=== PATIENT | male | born 1950 | race Two or more races ===

== ENCOUNTER 2017-12-06 14:00 | Outpatient (CLI) | payer MEDICARE, BC ==
[~2017-12-06] VITALS: Ht 152.4 cm; Wt 60.8 kg
[2017-12-06 14:00] VITALS: BP 134/68
--- NOTE | 2017-12-06 15:09 | GI Initial Consult Note ---
Stauffer,Linn Amoroi N.PSilvano 12/06/17 1509: History of Present Illness General Date patient seen: Dec 06, 2017 Time patient seen: 15:00 Referring physician: None Reason for Consultation: colonoscopy Present Illness HPI 67 year old male presents today for routine colonoscopy. States he has been having epigastric pain with a history of GERD. Denies any unintentional weight loss or changes in dietary habits. No signs of abuse or neglect. Patient is not fall risk. Home Meds Reported Medications [no medicaion] No Conflict Check 12/07/17 Med list reviewed/reconciled: No Allergies: Coded Allergies: No Known Allergies (Unverified , 12/06/17) Patient History PMH Narrative Denies any past medical history. Past Surgical History: Rozina Fundoplication Thyroidectomy Family History Narrative Father has liver cancer. Mother had breast cancer. Social History: Reports: other - coffee occasionally, Denies: smoking, alcohol use, drug use Review of Systems All Other Systems: negative except mentioned in HPI Physical Exam T 98.2 Bp 134/68 P 67 95 RA HT 5'0 WT 134 lbs Sp02 EP Interpretation: reviewed, normal General Appearance: well appearing, no apparent distress, alert Head: normocephalic EENT: PERRL/EOMI, normal ENT inspection Neck: supple Respiratory: normal breath sounds, no respiratory distress Cardiovascular: normal rate Gastrointestinal: normal inspection, non tender, soft, normal bowel sounds, non -distended Rectal: deferred Genitourinary: deferred Musculoskeletal: normal inspection, back normal Neurologic: normal inspection, alert, oriented x3, responsive Psychiatric: normal inspection, judgement/insight normal, memory normal Skin: normal inspection, normal color, no rash, warm/dry, palpation normal, well hydrated Lymphatic: normal inspection, no adenopathy GI: Plan Problems: (1) GERD (gastroesophageal reflux disease) (2) History of Rozina fundoplication (3) Colonoscopy planned (4) History of thyroidectomy Plan EGD/colonoscopy scheduled 12/13/17. - CLD & (Nulytely/Suprep/Movi-Prep) prep instructions given and acknowledged by patient. - NPO @ [place] day prior procedure explained. Seen with Dr. Yee. Thank you for this patient referral. ALIZE YEE 12/07/17 1150: History of Present Illness Present Illness Home Meds Reported Medications [no medicaion] No Conflict Check 12/07/17 Allergies: Coded Allergies: No Known Allergies (Unverified , 12/06/17) GI: Plan Plan The patient was seen and examined at bedside and all new and available data was reviewed in the patients chart. I agree with the above findings, impression and plan. (Patient seen earlier today. Signature stamp does not reflect patient encounter time.). - MD [facility] N.PS[facility] Dec 06, 2017 15:09 ALIZE YEE Dec 07, 2017 11:50
[2017-12-06 15:32] VITALS: BP 134/68
[2017-12-07] MEDS ORDERED: [UNRECOGNIZED DRUG - REMARK] (10:57)
== END 2017-12-06 14:32 | disposition home or self-care (01) ==
LOC: PAN 14:00
DX: K21.9 Gastro-esophageal reflux disease without esophagitis (principal); E89.0 Postprocedural hypothyroidism; Z80.8 Family history of malignant neoplasm of other organs or systems
CPT/HCPCS: 99201

== ENCOUNTER 2017-12-15 06:12 | Day surgery (SDC) | payer MEDICARE, BC ==
[2017-12-15] VITALS (8 sets, daily range): BP systolic 132–146; BP diastolic 60–68
[~2017-12-15] VITALS: Ht 167.6 cm; Wt 62.6 kg
[~2017-12-15 06:12] MED LIST: [UNRECOGNIZED DRUG - REMARK]
[2017-12-15] MEDS ORDERED: Propofol 200mg/20ml IV ONE (06:13)
[2017-12-15] MEDS ORDERED: Midazolam 2mg/2ml Inj ONE (06:13)
[2017-12-15] MEDS ORDERED: SYNTHROID75 MCG ORAL (06:49)
--- NOTE | 2017-12-15 07:01 | Anethesia Preoperative Eval ---
Anesthesia Pre-op PMH/ROS General Date of Evaluation: Dec 15, 2017 Time of Evaluation: 08:00 Anesthesiologist: Alejo ASA Score: ASA 2 Mallampati Score Class I : Soft palate, uvula, fauces, pillars visible Class II: Soft palate, uvula, fauces visible Class III: Soft palate, base of uvula visible Class IV: Only hard plate visible Mallampati Classification: Class I Surgeon: Vandana Diagnosis: colon screening, GERD Surgical Procedure: EGD, Colonoscopy Anesthesia History: none Family History: no anesthesia problems Allergies: Coded Allergies: No Known Allergies (Unverified , 12/06/17) Medications: see eMAR Past Medical History Cardiovascular: Denies: HTN, CAD, [place], valve dz, arrhythmia, other Pulmonary: Denies: asthma, COPD, AGATHA, other Gastrointestinal/Genitourinary: Reports: GERD, other - Rozina Fundoplication Neurologic/Psychiatric: Reports: depression/anxiety Endocrine: Reports: other - thyroidectomy HEENT: Denies: cataract (L), cataract (R), glaucoma, [place] (L), [place] (R), other Hematology/Immune: Denies: anemia, DVT, bleeding disorder, other Musculoskeletal/Integumentary: Denies: OA, RA, DJD, DDD, edema, other Anesthesia Pre-op Phys. Exam Physician Exam Constitutional: NAD Neurologic: CN 2-12 intact Cardiovascular: RRR Respiratory: CTA Gastrointestinal: S/NT/ND Airway Exam Mallampati Score: Class I MO: full ROM: full Teeth: intact - left top tooth implant Dentures: no upper, no lower Anesthesia Pre-op A/P Labs chart reviewed Studies Pre-op Studies: EKG - NSB 57 bpm Risk Assessment & Plan Assessment: A&Ox4 Plan: MAC Status Change Before Surgery: No Pre-Antibiotics Given Within 1 Hr of Incision: No Seda Dhillon CRNA Dec 15, 2017 07:01
--- NOTE | 2017-12-15 08:00 | Short Stay Surgery H&P ---
History of Present Illness History of Present Illness Chief Complaint see recent consult note HPI Rachel Corona is a 67 year old male who was admitted on for Colon Screening Patient History Allergies: Coded Allergies: No Known Allergies (Unverified , 12/06/17) PAST MEDICAL HISTORY: Past Surgeries: Social History: Medication History Scheduled Levothyroxine Sodium* (Synthroid*), 75 MCG ORAL DAILY, (Reported) Physical Exam Vital Signs Last Vital Signs Date Time Temp Pulse Resp B/P (MAP) Pulse Ox O2 Delivery O2 Flow Rate FiO2 12/15/17 07:07 96.9 56 18 138/62 99 Room Air Plan Attestation Are the patient's medical conditions optimized for surgery? ALIZE YEE Dec 15, 2017 08:00
--- NOTE | 2017-12-15 08:00 | Pre-Procedure Note/Attestation ---
Pre-Procedure Note/Attestation Complete Prior to Procedure Planned Procedure: not applicable Procedure Narrative: esophagogastroduodenoscopy and colonoscopy Indications for Procedure Pre-Operative Diagnosis: screening colon,GERD Attestation I attest that I discussed the nature of the procedure; its benefits; risks and complications; and alternatives (and the risks and benefits of such alternatives ), prior to the procedure, with the patient (or the patient's legal signs sales representative). I attest that, if there was a reasonable possibility of needing a blood transfusion, the patient (or the patient's legal signs sales representative) was given the [facility] standardized written summary, pursuant to the [place] Blood Safety Act ([place] Health and Safety Code # 1645, as amended). I attest that I re-evaluated the patient just prior to the surgery and that there has been no change in the patient's H&P, except as documented below: ALIZE YEE Dec 15, 2017 08:00
--- NOTE | 2017-12-15 08:24 | Immediate Post-Op Evaluation ---
Immediate Post-Op Evalulation Immediate Post-Op Evalulation Procedure: EGD with biopsy, colonoscopy Date of Evaluation: Dec 15, 2017 Time of Evaluation: 08:43 IV Fluids: NSS 600 ml Blood Products: 0 Estimated Blood Loss: 0 Urinary Output: 0 Blood Pressure Systolic: 145 Blood Pressure Diastolic: 65 Pulse Rate: 58 Respiratory Rate: 20 O2 Sat by Pulse Oximetry: 99 Temperature (Fahrenheit): 98.5 Pain Score (1-10): 0 Nausea: No Vomiting: No Complications none Patient Status: awake, reacts Hydration Status: adequate Given Within 1 Hr of Incision: Seda Castillo CRNA Dec 15, 2017 08:24
--- NOTE | 2017-12-15 08:25 | 48 Hour Post Anesthesia Eval ---
Post Anesthesia Evaluation Procedure: EGD with biopsy, colonoscopy Date of Evaluation: Dec 15, 2017 Time of Evaluation: 08:52 Blood Pressure Systolic: 140 0: 62 Pulse Rate: 59 Respiratory Rate: 20 Temperature (Fahrenheit): 98.5 O2 Sat by Pulse Oximetry: 100 Airway: patent Nausea: No Vomiting: No Pain Intensity: 0 - pt feels gasy Hydration Status: adequate Cardiopulmonary Status: WNL Mental Status/LOC: patient returned to baseline Post-Anesthesia Complications: none Follow-up care needed: patient intructions given Seda Dhillon CRNA Dec 15, 2017 08:25
--- NOTE | 2017-12-15 08:35 | Endoscopy Procedure Note ---
Endoscopy Procedure Note Indication for Procedure: gerd, screening colon Procedures Performed: EGD, colonoscopy Operative Findings/Diagnosis: HH, esophagitis, diverticulosis Specimen: yes Pt Tolerated Procedure Well: Yes Estimated Blood Loss: none Anesthesiologist: vinicius Anesthesia: MAC Implant(s) used?: No 50 yrs or older w/o bx or poly: Yes 10yrs. F/U not recommended: Yes If not recommended, why?: Above average risk 10 yrs. F/U needed: Yes 18 years or older w/prev. colo: No ALIZE YEE Dec 15, 2017 08:35
--- NOTE | 2017-12-15 15:00 | Procedure Note ---
DATE OF PROCEDURE: 12/15/2017 SURGEON: Vasquez Ross M.D. PROCEDURE: Upper endoscopy with biopsy and colonoscopy. ANESTHESIA: Per Alejo MUNIZ. INSTRUMENT: Olympus adult flexible upper endoscope and colonoscope. INDICATION: Screening colonoscopy and chronic GERD. The procedure, risks, benefits, and possible consequences, including hemorrhage, aspiration, perforation and infection, and alternative treatments, were explained to the patient/legal guardian by Dr. Vasquez Ross and the patient/legal guardian understood and accepted these risks. DESCRIPTION OF PROCEDURE: After informed consent was obtained and the patient was adequately sedated, Olympus upper endoscope was advanced from mouth into the second portion of the duodenum and retroflexion was performed in the stomach. The patient has evidence of large hiatal hernia. Also evidence of gastric fold at about 26 cm from the incisors and diaphragm was at about 33. 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 The patient also had evidence of mild atrophic gastritis. Random biopsy from antrum and body was obtained to rule out H. pylori infection. Biopsy from the suspicious Agudelo area was also obtained. At this time, the upper endoscope was retrieved and the patient was turned over for colonoscopy. First, a rectal exam was performed, which was normal. Then, the scope was advanced from rectum into the cecum and then subsequently to terminal ileum. Quality of prep was excellent. The patient had evidence of diverticulosis both in the left and right, but more prominent in the left colon. No obvious polyp was seen. Retroflexion of the rectum showed evidence of small internal hemorrhoid. SUMMARY FINDINGS: 1. Distal esophagitis LA criteria grade 2. 2. 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 3. Hiatal hernia. 4. Atrophic gastritis, status post biopsy. 5. Diverticulosis. 6. Internal hemorrhoids. RECOMMENDATIONS: Follow up biopsy results and treat accordingly. The patient to be started on PPI daily. If the biopsies were consistent with Agudelo's, most probably will benefit from ablation. Vasquez Ross M.D. DR: KIMBERLI/XIOMY JOB#: [id number] CC:
--- NOTE | 2017-12-16 12:40 | Cardiology Report ---
APPROVED REPORT EKG Measurement Heart [id number] [place] 166P53 [id number] Sinus bradycardia Otherwise normal ECG
== END 2017-12-15 09:55 | disposition home or self-care (01) ==
LOC: GAS 06:12
DX: Z12.11 Encounter for screening for malignant neoplasm of colon (principal); K21.9 Gastro-esophageal reflux disease without esophagitis; K44.9 Diaphragmatic hernia without obstruction or gangrene; K29.40 Chronic atrophic gastritis without bleeding; K20.9 Esophagitis, unspecified; K57.90 Diverticulosis of intestine, part unspecified, without perforation or abscess without bleeding; K64.8 Other hemorrhoids; F32.9 Major depressive disorder, single episode, unspecified; F41.9 Anxiety disorder, unspecified
CPT/HCPCS: 43239; 45378; 93005; J2250; J2704; 94003; 94150

== ENCOUNTER 2017-12-23 13:15 | Outpatient (CLI) | payer MEDICARE, BC ==
[~2017-12-23 13:15] MED LIST changes: +SYNTHROID75 MCG ORAL
[2017-12-23 13:59] VITALS: BP 131/61
--- NOTE | 2017-12-23 16:00 | GI Progress Note ---
Assessment/Plan Problems: (1) Barretts esophagus ICD Codes: K22.70 - Agudelo's esophagus without dysplasia SNOMED: 784896881 (2) Colonic polyp ICD Codes: K63.5 - Polyp of colon SNOMED: 93355287 Status: stable Status Narrative Seen with Dr. Ross. Assessment/Plan SUMMARY FINDINGS: 1. Distal esophagitis LA criteria grade 2. 2. 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 3. Hiatal hernia. 4. Atrophic gastritis, status post biopsy. 5. Diverticulosis. 6. Internal hemorrhoids. RECOMMENDATIONS: PPI daily RTC prn repeat EGD x 1 year patient to consider ablation Subjective Gastrointestinal/Abdominal: Reports: no symptoms Objective Last 24 Hour Vital Signs Date Time Temp Pulse Resp B/P (MAP) Pulse Ox O2 Delivery O2 Flow Rate FiO2 12/23/17 13:59 97.5 52 16 131/61 96 General Appearance: WD/WN, no apparent distress, alert Cardiovascular: normal rate Respiratory/Chest: normal breath sounds, no respiratory distress Abdominal Exam: normal bowel sounds, non tender, soft Extremities: normal range of motion, non-tender Linn Stauffer N.PSilvano Dec 23, 2017 16:00
[2017-12-23] MEDS ORDERED: DEXILANT60 MG ORAL (16:48)
== END 2017-12-23 13:47 | disposition home or self-care (01) ==
LOC: PAN 13:15
DX: K22.70 Barrett's esophagus without dysplasia (principal); K63.5 Polyp of colon; K44.9 Diaphragmatic hernia without obstruction or gangrene; K57.90 Diverticulosis of intestine, part unspecified, without perforation or abscess without bleeding; K64.8 Other hemorrhoids; K29.40 Chronic atrophic gastritis without bleeding
CPT/HCPCS: 99212

== ENCOUNTER 2018-03-01 09:27 | Outpatient (CLI) | payer MEDICARE, BC ==
[~2018-03-01 09:27] MED LIST changes: +DEXILANT60 MG ORAL
[2018-03-01 09:47] VITALS: BP 125/60
--- NOTE | 2018-03-01 12:45 | General Progress Note ---
Assessment/Plan Problem List: (1) Back pain ICD Codes: M54.9 - Dorsalgia, unspecified SNOMED: 043834801 (2) Irregular heart beat ICD Codes: I49.9 - Cardiac arrhythmia, unspecified SNOMED: 643973106, 879900932, 607793151 (3) GERD (gastroesophageal reflux disease) ICD Codes: K21.9 - Gastro-esophageal reflux disease without esophagitis SNOMED: 340002813 (4) Barretts esophagus ICD Codes: K22.70 - Agudelo's esophagus without dysplasia SNOMED: 197398662 (5) Colonic polyp ICD Codes: K63.5 - Polyp of colon SNOMED: 88642410 (6) History of thyroidectomy ICD Codes: E89.0 - Postprocedural hypothyroidism SNOMED: 22110895, 202695860 (7) History of Rozina fundoplication ICD Codes: Z98.890 - Other specified postprocedural states SNOMED: 246579360 Assessment/Plan cont dexilant repeat EGD a year from the last one consider ablation treatment trial of flexoril for back pain refered to cardiology for irregular heart beat Subjective ROS Limited/Unobtainable: Yes Allergies: Coded Allergies: No Known Allergies (Unverified , 12/06/17) Subjective c/o back pain Objective Last 24 Hour Vital Signs Date Time Temp Pulse Resp B/P (MAP) Pulse Ox O2 Delivery O2 Flow Rate FiO2 03/01/18 09:47 98.0 67 16 125/60 98 98.0 General Appearance: alert EENT: normal ENT inspection Neck: supple Cardiovascular: normal rate Respiratory/Chest: lungs clear Abdomen: normal bowel sounds, non tender, soft Extremities: non-tender ALIZE YEE Mar 01, 2018 12:45
== END 2018-03-01 10:12 | disposition home or self-care (01) ==
LOC: PAN 09:27
DX: M54.9 Dorsalgia, unspecified (principal); I49.9 Cardiac arrhythmia, unspecified; K21.9 Gastro-esophageal reflux disease without esophagitis; K22.70 Barrett's esophagus without dysplasia; K63.5 Polyp of colon; E89.0 Postprocedural hypothyroidism; Z98.890 Other specified postprocedural states
CPT/HCPCS: 99213

== ENCOUNTER 2018-09-20 09:38 | Outpatient (CLI) | payer MEDICARE, BC ==
[2018-09-20 10:09] VITALS: BP 141/77
--- NOTE | 2018-09-20 15:37 | GI Progress Note ---
Assessment/Plan Problems: (1) Barretts esophagus ICD Codes: K22.70 - Agudelo's esophagus without dysplasia SNOMED: 264840041 (2) GERD (gastroesophageal reflux disease) ICD Codes: K21.9 - Gastro-esophageal reflux disease without esophagitis SNOMED: 917996958 Status: stable Status Narrative Seen with Dr. Ross. Assessment/Plan GERD Esophagitis HH Diverticula EGD scheduled 10/03/18. - NPO @ [place] day prior procedure. ppi will follow with additional recs post procedure The patient was seen and examined at bedside and all new and available data was reviewed in the patients chart. I agree with the above findings, impression and plan. (Patient seen earlier today. Signature stamp does not reflect patient encounter time.). - Vasquez Ross MD Subjective Subjective GERD History of Agudelo Objective Last 24 Hour Vital Signs Date Time Temp Pulse Resp B/P (MAP) Pulse Ox O2 Delivery O2 Flow Rate FiO2 09/20/18 10:09 98.1 65 16 141/77 99 98.1 General Appearance: WD/WN, no apparent distress, alert Cardiovascular: normal rate Respiratory/Chest: normal breath sounds, no respiratory distress Abdominal Exam: normal bowel sounds, non tender, soft Extremities: normal range of motion, non-tender Anel Stauffer [employer] Sep 20, 2018 15:37
== END 2018-09-20 10:08 | disposition home or self-care (01) ==
LOC: PAN 09:38
DX: K22.70 Barrett's esophagus without dysplasia (principal); K21.0 Gastro-esophageal reflux disease with esophagitis; K57.90 Diverticulosis of intestine, part unspecified, without perforation or abscess without bleeding
CPT/HCPCS: 99213

== ENCOUNTER 2018-10-03 06:29 | Day surgery (SDC) | payer MEDICARE, BC ==
[~2018-10-03] VITALS: Ht 160 cm; Wt 60.3 kg
[2018-10-03] VITALS (7 sets, daily range): BP systolic 120–136; BP diastolic 58–77
[2018-10-03] MEDS ORDERED: LR 1000ml ONE (06:30)
[2018-10-03] MEDS ORDERED: Midazolam 2mg/2ml Inj ONE (06:30)
[2018-10-03] MEDS ORDERED: Propofol 200mg/20ml IV ONE (06:30)
[2018-10-03] MEDS ORDERED: fentaNYL 100 mcg/2 mL IV ONE (06:30)
--- NOTE | 2018-10-03 09:33 | Pre-Procedure Note/Attestation ---
Pre-Procedure Note/Attestation Complete Prior to Procedure Planned Procedure: not applicable Procedure Narrative: EGD Indications for Procedure Pre-Operative Diagnosis: GERD, esophagitis Attestation I attest that I discussed the nature of the procedure; its benefits; risks and complications; and alternatives (and the risks and benefits of such alternatives ), prior to the procedure, with the patient (or the patient's legal construction sales representative). I attest that, if there was a reasonable possibility of needing a blood transfusion, the patient (or the patient's legal construction sales representative) was given the [facility] standardized written summary, pursuant to the [place] Blood Safety Act ([place] Health and Safety Code # 1645, as amended). I attest that I re-evaluated the patient just prior to the surgery and that there has been no change in the patient's H&P, except as documented below: Vasquez Ross MD Oct 03, 2018 09:33
--- NOTE | 2018-10-03 09:33 | Short Stay Surgery H&P ---
History of Present Illness History of Present Illness Chief Complaint see recent office note HPI Rachel Hawkins is a 68 year old male who was admitted on for GERD Patient History Allergies: Coded Allergies: No Known Allergies (Unverified , 10/03/18) Medication History Scheduled Dexlansoprazole (Dexilant), 60 MG ORAL DAILY, (Reported) Levothyroxine Sodium* (Synthroid*), 75 MCG ORAL DAILY, (Reported) Physical Exam Vital Signs Last Vital Signs Date Time Temp Pulse Resp B/P (MAP) Pulse Ox O2 Delivery O2 Flow Rate FiO2 10/03/18 07:00 Room Air 10/03/18 06:52 97.3 64 18 129/77 98 Plan Attestation Are the patient's medical conditions optimized for surgery? Vasquez Ross MD Oct 03, 2018 09:33
--- NOTE | 2018-10-03 09:47 | Anethesia Preoperative Eval ---
Anesthesia Pre-op PMH/ROS General Date of Evaluation: Oct 03, 2018 Time of Evaluation: 09:28 Anesthesiologist: Shalom ASA Score: ASA 2 Mallampati Score Class I : Soft palate, uvula, fauces, pillars visible Class II: Soft palate, uvula, fauces visible Class III: Soft palate, base of uvula visible Class IV: Only hard plate visible Mallampati Classification: Class II Surgeon: Vandana Diagnosis: abdominal pain Surgical Procedure: EGD Anesthesia History: none Family History: no anesthesia problems Allergies: Coded Allergies: No Known Allergies (Unverified , 10/03/18) Medications: see eMAR Patient NPO?: Yes Past Medical History Cardiovascular: Denies: HTN, CAD, [place], valve dz, arrhythmia, other Pulmonary: Denies: asthma, COPD, AGATHA, other Gastrointestinal/Genitourinary: Reports: GERD; Denies: CRI, ESRD, other Neurologic/Psychiatric: Denies: dementia, CVA, depression/anxiety, TIA, other Endocrine: Denies: DM, hypothyroidism, steroids, other HEENT: Denies: cataract (L), cataract (R), glaucoma, [place] (L), TRI[place] (R), other Hematology/Immune: Denies: anemia, DVT, bleeding disorder, other Musculoskeletal/Integumentary: Denies: OA, RA, DJD, DDD, edema, other PMH Narrative: as above PSxH Narrative: See H&P Anesthesia Pre-op Phys. Exam Physician Exam Last Vital Signs Date Time Temp Pulse Resp B/P (MAP) Pulse Ox O2 Delivery O2 Flow Rate FiO2 10/03/18 07:00 Room Air 10/03/18 06:52 97.3 64 18 129/77 98 Constitutional: NAD Neurologic: CN 2-12 intact Cardiovascular: RRR, no M/R/G Respiratory: CTA Gastrointestinal: S/NT/ND Airway Exam Mallampati Score: Class II MO: full ROM: full Teeth: intact Dentures: no upper, no lower Anesthesia Pre-op A/P Labs see chart Studies Pre-op Studies: EKG - NSR Risk Assessment & Plan Assessment: ASA 2 Plan: Daryl Ken MD Oct 03, 2018 09:47
--- NOTE | 2018-10-03 09:49 | Endoscopy Procedure Note ---
Endoscopy Procedure Note General Indication for Procedure: barretts esophagus Procedures Performed: EGD Operative Findings/Diagnosis: same Specimen: yes Pt Tolerated Procedure Well: Yes Estimated Blood Loss: none Anesthesia Anesthesiologist: sindi Anesthesia: MAC Inserted Devices Implant(s) used?: No GI Core Measures 50 yrs or older w/o bx or poly: Not Applicable 10yrs. F/U not recommended: Not Applicable Vasquez Ross MD Oct 03, 2018 09:49
--- NOTE | 2018-10-03 09:55 | Immediate Post-Op Evaluation ---
Immediate Post-Op Evalulation Immediate Post-Op Evalulation Procedure: EGD with Bx Date of Evaluation: Oct 03, 2018 Time of Evaluation: 09:54 IV Fluids: 500 Blood Products: none Estimated Blood Loss: min Urinary Output: none Blood Pressure Systolic: 136 Blood Pressure Diastolic: 72 Pulse Rate: 76 Respiratory Rate: 20 O2 Sat by Pulse Oximetry: 99 Temperature (Fahrenheit): 97.6 Pain Score (1-10): 1 Nausea: No Vomiting: No Complications none Patient Status: reacts, patent, none Hydration Status: adequate Daryl Rausch MD Oct 03, 2018 09:55
--- NOTE | 2018-10-03 10:23 | 48 Hour Post Anesthesia Eval ---
Post Anesthesia Evaluation Procedure: EGD with Bx Date of Evaluation: Oct 03, 2018 Time of Evaluation: 10:22 Blood Pressure Systolic: 128 0: 76 Pulse Rate: 68 Respiratory Rate: 20 Temperature (Fahrenheit): 98.6 O2 Sat by Pulse Oximetry: 99 Airway: patent Nausea: No Vomiting: No Pain Intensity: 1 Hydration Status: adequate Cardiopulmonary Status: stable Mental Status/LOC: patient returned to baseline Follow-up Care/Observations: n/a Post-Anesthesia Complications: none Follow-up care needed: ready to discharge Daryl Rausch MD Oct 03, 2018 10:23
--- NOTE | 2018-10-03 10:30 | Procedure Note ---
DATE OF PROCEDURE: 10/03/2018 SURGEON: Vasquez Ross M.D. ANESTHESIOLOGIST: Dr. Rausch. PROCEDURE: Upper endoscopy with biopsy. ANESTHESIA: Per Dr. Rausch. INSTRUMENT: Olympus adult flexible upper endoscope. INDICATION: Agudelo esophagus. The procedure, risks, benefits, and possible consequences, including hemorrhage, aspiration, perforation and infection, and alternative treatments, were explained to the patient/legal guardian by Dr. Vasquez Ross and the patient/legal guardian understood and accepted these risks. DESCRIPTION OF PROCEDURE: After informed consent was obtained and the patient was adequately sedated, Olympus upper endoscope was advanced from the mouth into the second portion of the duodenum and retroflexion was performed in the stomach. The patient had evidence of 4 cm hiatal hernia. There was evidence of Agudelo esophagus in the distal esophagus roughly about 2-3 cm in length. Biopsy from this salmon-colored mucosa was obtained for evaluation for . In the stomach, there was diffuse gastritis. Random biopsies from antrum and body was obtained to rule out H. pylori infection. Otherwise, the rest of the colonoscopy examination grossly looked within normal limits. SUMMARY OF FINDINGS: 1. A 4-cm hiatal hernia. 2. Agudelo esophagus, status post biopsy. 3. Gastritis, status post biopsy. RECOMMENDATIONS: 1. Continue on PPI daily. The patient currently on Dexilant 60 mg daily. Continue. 2. Follow up biopsy results and treat accordingly. 3. We will recommend repeat endoscopy in one year. Vasquez Ross M.D. DR: Chris JOB#: [id number] CC:
--- NOTE | 2018-10-04 16:42 | Cardiology Report ---
APPROVED REPORT EKG Measurement Heart [id number] [place] 170P43 [id number] Normal sinus rhythm Normal ECG
== END 2018-10-03 10:50 | disposition home or self-care (01) ==
LOC: GAS 06:29
DX: K22.70 Barrett's esophagus without dysplasia (principal); K44.9 Diaphragmatic hernia without obstruction or gangrene; K29.70 Gastritis, unspecified, without bleeding
CPT/HCPCS: 43239; 93005; J2250; J2704; J3010; 94003; 94150

== ENCOUNTER 2018-10-13 09:46 | Outpatient (CLI) | payer MEDICARE, BC ==
--- NOTE | 2018-10-13 23:25 | GI Progress Note ---
Assessment/Plan Problems: (1) Barretts esophagus ICD Codes: K22.70 - Agudelo's esophagus without dysplasia SNOMED: 313998809 (2) GERD (gastroesophageal reflux disease) ICD Codes: K21.9 - Gastro-esophageal reflux disease without esophagitis SNOMED: 111021384 (3) Colonic polyp ICD Codes: K63.5 - Polyp of colon SNOMED: 35358415 (4) History of thyroidectomy ICD Codes: E89.0 - Postprocedural hypothyroidism SNOMED: 00272545, 117239298 (5) History of Rozina fundoplication ICD Codes: Z98.890 - Other specified postprocedural states SNOMED: 497648894 Status: doing well, stable Status Narrative Seen with Dr. Ross. Assessment/Plan SUMMARY OF FINDINGS: 1. A 4-cm hiatal hernia. 2. Agudelo esophagus, status post biopsy. 3. Gastritis, status post biopsy. RECOMMENDATIONS: 1. Continue on PPI daily. The patient currently on Dexilant 60 mg daily. 2. Follow up biopsy results and treat accordingly. >> negative for dysplasia or malignancy 3. We will recommend repeat endoscopy in one year. Refusing ablation RTC x 3 months The patient was seen and examined at bedside and all new and available data was reviewed in the patients chart. I agree with the above findings, impression and plan. (Patient seen earlier today. Signature stamp does not reflect patient encounter time.). - Vasquez Ross MD Subjective Gastrointestinal/Abdominal: Reports: no symptoms Objective General Appearance: WD/WN, no apparent distress, alert Cardiovascular: normal rate Respiratory/Chest: normal breath sounds, no respiratory distress Abdominal Exam: normal bowel sounds, non tender, soft Extremities: normal range of motion, non-tender Anel Stauffer ROAD MACHINE OPERATOR Oct 13, 2018 23:25
== END 2018-10-13 15:16 | disposition home or self-care (01) ==
LOC: PAN 09:46
DX: K22.70 Barrett's esophagus without dysplasia (principal); K21.9 Gastro-esophageal reflux disease without esophagitis; K63.5 Polyp of colon; E89.0 Postprocedural hypothyroidism; Z98.890 Other specified postprocedural states; K44.9 Diaphragmatic hernia without obstruction or gangrene; K29.70 Gastritis, unspecified, without bleeding
CPT/HCPCS: 99212